=== PATIENT | female | born 1940 | race Two or more races ===

== ENCOUNTER 2024-10-21 08:00 | Outpatient (RCR) | payer MEDICARE, SELFPAY | END 2024-12-02 13:57 | disposition home or self-care (01) | LOC: HO.WCC 08:00 | PROVIDERS: PCP Internal Medicine; Referring Provider Internal Medicine; Visit Provider Surgery | DX: I87.312 Chronic venous hypertension (idiopathic) with ulcer of left lower extremity (principal); L97.822 Non-pressure chronic ulcer of other part of left lower leg with fat layer exposed; Z79.01 Long term (current) use of anticoagulants; Z79.899 Other long term (current) drug therapy | CPT/HCPCS: 11042; 99212 ==